=== PATIENT | female | born 1960 | race Caucasian/White ===

== ENCOUNTER 2024-02-11 20:03 | Emergency (ER) | payer OTHER ==
[~2024-02-11] VITALS: Ht 154.9 cm; Wt 81.6 kg
[2024-02-11 20:17] VITALS: BP 145/88; PULSE 84; RESP 18; TEMP 98.6; O2SAT 98
[2024-02-11] MEDS ORDERED: ROCEPHIN ONE (20:27)
[2024-02-11] MEDS ORDERED: DUONEB 0.5-3(2.5) MG/3 ML IH ONE (20:28)
[2024-02-11 20:30] VITALS: PULSE 83; RESP 18; O2SAT 95
[2024-02-11] MEDS: ROCEPHIN IM STA (20:34)
[2024-02-11] MEDS: DUONEB 0.5-3(2.5) MG/3 ML IH STA (20:36)
[2024-02-11 20:42] VITALS: PULSE 87; RESP 18; O2SAT 96
[2024-02-11 21:20] VITALS: BP 120/84; PULSE 78; RESP 18; TEMP 98.6; O2SAT 98
== END 2024-02-11 21:25 | disposition home or self-care (01) ==
LOC: ER 20:03
DX: J20.9 Acute bronchitis, unspecified (principal); I49.9 Cardiac arrhythmia, unspecified; E78.00 Pure hypercholesterolemia, unspecified; I10 Essential (primary) hypertension; E07.9 Disorder of thyroid, unspecified; Z90.710 Acquired absence of both cervix and uterus
CPT/HCPCS: 99283; 71045; 96372; 94640; J0696